=== PATIENT | female | born 1945 | race Hispanic/Latino ===

== ENCOUNTER → 2023-09-21 | Outpatient (CLI) | payer OTHER ==
[2023-09-21] MEDS: REGADENOSON 0.4 MG/5 ML PF SYG IVP ONE (11:02)
== END | disposition home or self-care (01) ==
LOC: EDUNIT# 08-24 08:40 → SHCH 08:07
PROVIDERS: ATTEND Internal Medicine Cardiovascular Disease
DX: R07.9 Chest pain, unspecified (principal); R01.1 Cardiac murmur, unspecified
CPT/HCPCS: 78452; 93017; J2785; A9500 ×2; 96374